=== PATIENT | female | born 1980 | race Caucasian/White ===

== ENCOUNTER → 2024-01-17 | Day surgery (SDC) | payer BC | LOC: BICULT 11:56 | PROVIDERS: ATTEND Nurse Practitioner Family | PROC: 0H9U3ZX Drainage of Left Breast, Percutaneous Approach, Diagnostic (ICD-10-PCS; principal; 2024-01-17) | DX: D24.2 Benign neoplasm of left breast (principal) | CPT/HCPCS: 19083; 88305 ==